=== PATIENT | female | born 1935 | race Hispanic/Latino ===

== ENCOUNTER 2018-11-14 11:23 | Emergency (ER) | payer MEDICARE ==
--- NOTE | 2018-11-14 11:41 | Event Note ---
ED Screening Note Date of service: 11/14/18 Time: 11:37 ED Screening Note: This is a 82 y.o. F. that presents to the ER with elevated blood pressure. Patient states she was volunteering at a health fair and decided to check her blood pressure. Reports blood pressure was 186/105, 194/107. The materials management supervisor at the health [facility] told her to follow up in the ER because this is new onset HTN. Patient denies chest pain, SOB, palpitations, dizziness, or visual changes. This initial assessment/diagnostic orders/clinical plan/treatment(s) is/are subject to change based on patients health status, clinical progression and re- assessment by fellow clinical providers in the ED. Further treatment and workup at subsequent clinical providers discretion. Patient/guardian urged not to elope from the ED as their condition may be serious if not clinically assessed and managed. Initial orders include:
--- NOTE | 2018-11-14 12:56 | XRay Report ---
CHEST 1 VIEW INDICATION: hypertension. COMPARISON: None. FINDINGS: Support devices: None. Heart: Normal. Lungs/Pleura: Mild increased interstitial/reticular markings in both lungs may be chronic. No consoli dation, significant effusion, or pneumothorax. IMPRESSION: 1. Mild diffuse increased interstitial/reticular markings within both lungs may be chronic. No consol idation or effusion. Heart size is normal. Signer Name: Vineet Weber MD Signed: 11/14/2018 12:52 PM Workstation Name: [id number]
[2018-11-14 13:21] LABS: Basophils # (Auto) 0.1 K/mm3 (0.0-0.1); Basophils % (Auto) 0.9 % (0.0-1.8); Eosinophils # (Auto) 0.1 K/mm3 (0.0-0.4); Eosinophils % (Auto) 1.2 % (0.0-4.3); Hematocrit 43.9 % (30.3-42.9); Hemoglobin 14.8 gm/dl (10.1-14.3); Lymphocytes # (Auto) 1.8 K/mm3 (1.2-5.4); Lymphocytes % (Auto) 23.9 % (13.4-35.0); Mean Corpuscular HGB Conc 34 % (30-34); Mean Corpuscular Volume 95 fl (79-97); Monocytes # (Auto) 0.6 K/mm3 (0.0-0.8); Monocytes % (Auto) 7.9 % (0.0-7.3); Platelet Count 209 K/mm3 (140-440); Red Blood Count 4.64 M/mm3 (3.65-5.03); Red Cell Distribution Width 12.9 % (13.2-15.2)
--- NOTE | 2018-11-14 13:21 | Emergency Department Report ---
ED General Adult HPI - General Chief complaint: High BP Stated complaint: HTN Time Seen by Provider: 11/14/18 11:37 Source: patient Mode of arrival: Ambulatory Limitations: Other - History of Present Illness Initial comments: This is an 82-year-old female who incidentally was found to have high blood pressure at a healthcare [facility]. She is not symptomatic at this time. She states that she is normally able to walk and has had no change in her ability to perform daily activities. She denies chest pain and shortness of breath. She's had no leg edema. Patient apparently has not seen her primary care doctor for a while. She states that she hasn't appointment in a week or less. She is not currently on medication for blood pressure. She states she has no history of hypertension. -: unknown Severity scale (0 -10): 0 - Related Data Previous Rx's Medication Instructions Recorded Last Taken Type Amlodipine Besylate [Norvasc] 2.5 mg PO DAILY #30 tablet 11/14/18 Unknown Rx Allergies Allergy/AdvReac Type Severity Reaction Status Date / Time cephalexin [From Keflex] AdvReac Rash Verified 11/14/18 11:31 ED Review of Systems ROS: Stated complaint: HTN Other details as noted in HPI Constitutional: denies: chills, fever Eyes: denies: eye pain, eye discharge, vision change ENT: denies: ear pain, throat pain Respiratory: denies: cough, shortness of breath, wheezing Cardiovascular: denies: chest pain, palpitations Endocrine: no symptoms reported Gastrointestinal: denies: abdominal pain, nausea, diarrhea Genitourinary: denies: urgency, dysuria, discharge Musculoskeletal: denies: back pain, joint swelling, arthralgia Skin: denies: rash, lesions Neurological: denies: headache, weakness, paresthesias Psychiatric: denies: anxiety, depression Hematological/Lymphatic: denies: easy bleeding, easy bruising ED Past Medical Hx - Past Medical History Hx Hypertension: No Additional medical history: HIGH CHOLESTEROL - Surgical History Past Surgical History?: No Additional Surgical History: HYSTERECTOMY - Social History Smoking Status: Never Smoker Substance Use Type: Alcohol - Medications Home Medications: Home Medications Medication Instructions Recorded Confirmed Last Taken Type Amlodipine Besylate [Norvasc] 2.5 mg PO DAILY #30 tablet 11/14/18 Unknown Rx ED Physical Exam - General Limitations: Other ([place]) General appearance: alert, in no apparent distress - Head Head exam: Present: atraumatic, normocephalic - Eye Eye exam: Present: normal appearance. Absent: scleral icterus - ENT ENT exam: Present: mucous membranes moist - Neck Neck exam: Present: normal inspection. Absent: tenderness, meningismus - Respiratory Respiratory exam: Present: normal lung sounds bilaterally. Absent: respiratory distress - Cardiovascular Cardiovascular Exam: Present: regular rate, normal rhythm. Absent: systolic murmur, diastolic murmur, rubs, gallop - GI/Abdominal GI/Abdominal exam: Present: soft, normal bowel sounds. Absent: distended, tenderness, guarding - Extremities Exam Extremities exam: Present: normal inspection - Back Exam Back exam: Present: normal inspection - Neurological Exam Neurological exam: Present: alert, oriented X3, CN II-XII intact. Absent: motor sensory deficit - Psychiatric Psychiatric exam: Present: normal affect, normal mood - Skin Skin exam: Present: warm, dry, intact, normal color. Absent: rash ED Course Vital Signs 11/14/18 11/14/18 11/14/18 11:38 12:00 12:15 Temperature 98.1 F Pulse Rate 90 85 83 Respiratory 18 17 Rate Blood Pressure 188/93 Blood Pressure 219/102 202/93 [Left] O2 Sat by Pulse 96 96 Oximetry 11/14/18 11/14/18 12:59 13:42 Temperature Pulse Rate 84 75 Respiratory Rate Blood Pressure 217/85 Blood Pressure 186/87 [Left] O2 Sat by Pulse Oximetry - Reevaluation(s) Reevaluation #1: 11/14/18 13:32 ED Medical Decision Making - Lab Data Result diagrams: 11/14/18 12:45 11/14/18 12:45 Laboratory Results - last 24 hr 11/14/18 11/14/18 12:45 12:45 WBC 7.6 RBC 4.64 Hgb 14.8 H Hct 43.9 H MCV 95 MCH 32 MCHC 34 RDW 12.9 L Plt Count 209 Lymph % (Auto) 23.9 Cooper % (Auto) 7.9 H Eos % (Auto) 1.2 Baso % (Auto) 0.9 Lymph # 1.8 Cooper # 0.6 Eos # 0.1 Baso # 0.1 Seg Neutrophils % 66.1 Seg Neutrophils # 5.0 Sodium 136 L Potassium 3.9 Chloride 97.4 L Carbon Dioxide 24 Anion Gap 19 BUN 12 Creatinine 0.7 Estimated GFR > 60 BUN/Creatinine Ratio 17 Glucose 95 Calcium 9.7 - EKG Data -: EKG Interpreted by Me EKG shows normal: sinus rhythm, axis, intervals, QRS complexes, ST-T waves (mild nonspecific changes) Rate: normal - EKG Data Interpretation: nonspecific ST-T wave yary - Radiology Data Radiology results: report reviewed, image reviewed (chronic appearing markings, no acute finding) Critical care attestation.: If time is entered above; I have spent that time in minutes in the direct care of this critically ill patient, excluding procedure time. ED Disposition Clinical Impression: Uncontrolled hypertension Disposition: - TO HOME OR SELFCARE Is pt being admited?: No Does the pt Need Aspirin: No Condition: Stable Instructions: Hypertension (ED) Additional Instructions: Check blood pressure at home. Follow-up with your primary care physician as planned. Return to the emergency department any specific symptoms or concerns or a blood pressure is elevated more than 200/120. Prescriptions: Amlodipine Besylate [Norvasc] 2.5 mg PO DAILY #30 tablet Referrals: usual, primary care this week [Other] - 3-5 Days Time of Disposition: 13:50
[2018-11-14] MEDS ORDERED: NORVASC PO ONE (13:34)
[2018-11-14 13:41] LABS: BUN/Creatinine Ratio 17; Blood Urea Nitrogen 12 mg/dL (7-17); Calcium 9.7 mg/dL (8.4-10.2); Hemolysis Index 7
[2018-11-14 14:52] VITALS: BP 183/83
== END 2018-11-14 14:35 | disposition home or self-care (01) ==
LOC: ED 11:23
DX: I10 Essential (primary) hypertension (principal); E78.00 Pure hypercholesterolemia, unspecified; Z98.51 Tubal ligation status; Z88.1 Allergy status to other antibiotic agents
CPT/HCPCS: 36415; 71045; 80048; 85025; 93005; 93010